=== PATIENT | female | born 1945 | race Caucasian/White ===

== ENCOUNTER 2017-01-29 09:49 | Outpatient (CLI) | payer MEDICARE ==
[2017-01-29 10:56] LABS: ALT (SGPT) 20 U/L (0-55); AST (SGOT) 18 U/L (5-34); Alkaline Phosphatase 85 U/L (40-150); Anion Gap 14 mmol/L (10-20); BUN (Urea Nitrogen) 16 mg/dL (9.8-20.1); Bilirubin, Total 0.7 mg/dL (0.2-1.2); Calc. Creatinine Clearance 0 mL/min (70-130); Calcium 9.4 mg/dL (7.8-10.44); Carbon Dioxide 24 mmol/L (23-31); Chloride 109 mmol/L (98-107); Estimated GFR-MDRD 71; Globulin 2.6 g/dL (2.4-3.5); LDL Cholesterol, Calculated 88 mg/dL; Protein, Total 7.1 g/dL (5.8-8.1)
== END 2017-01-29 09:50 | disposition home or self-care (01) ==
LOC: HPCALD 09:49
PROVIDERS: ATTEND Family Medicine
DX: Z11.59 Encounter for screening for other viral diseases (principal); E78.00 Pure hypercholesterolemia, unspecified
CPT/HCPCS: 36415; 80053; 80061; 86803

== ENCOUNTER 2017-03-14 15:37 | Outpatient (CLI) | payer MEDICARE | END 2017-03-14 15:38 | disposition home or self-care (01) | LOC: HPCALD 15:37 | PROVIDERS: ATTEND Family Medicine | DX: R39.9 Unspecified symptoms and signs involving the genitourinary system (principal) | CPT/HCPCS: 87086 ==

== ENCOUNTER 2019-08-04 19:54 | Emergency (ER) | payer MEDICARE ==
[2019-08-04] MEDS ORDERED: Ibuprofen 800 MG TAB ONE (20:28)
[2019-08-04] MEDS ORDERED: Cephalexin 500 MG CAP ONE (20:28)
[2019-08-04] MEDS ORDERED: Cephalexin 250 MG CAP ONE (20:29)
== END 2019-08-04 20:32 | disposition home or self-care (01) ==
LOC: BURERS 19:54
DX: S81.811A Laceration without foreign body, right lower leg, initial encounter (principal); K21.9 Gastro-esophageal reflux disease without esophagitis; W26.8XXA Contact with other sharp object(s), not elsewhere classified, initial encounter
CPT/HCPCS: 99282

== ENCOUNTER 2021-01-19 12:03 | Outpatient (CLI) | payer MEDICARE ==
--- NOTE | 2021-01-19 15:17 | RAD ---
Left hip 2 views: 01/19/2021 COMPARISON: None HISTORY: Pain, prior trauma FINDINGS: There is mild/moderate superior joint space narrowing with lateral acetabular osteophyte fo rmation. No acute fracture or evidence of dislocation is seen IMPRESSION: Degenerative change of the left hip. No displaced fracture or dislocation.
== END 2021-01-19 12:04 | disposition home or self-care (01) ==
LOC: BURRAD 12:03
PROVIDERS: ATTEND Physician Assistant
DX: M25.552 Pain in left hip (principal); M16.12 Unilateral primary osteoarthritis, left hip; W55.89XA Other contact with other mammals, initial encounter

== ENCOUNTER 2021-07-09 08:05 | Outpatient (CLI) | payer MEDICARE | END 2021-07-09 08:06 | disposition home or self-care (01) | LOC: BURRAD 08:05 | PROVIDERS: ATTEND Family Medicine | DX: M50.121 Cervical disc disorder at C4-C5 level with radiculopathy (principal); M47.22 Other spondylosis with radiculopathy, cervical region | CPT/HCPCS: 72040 ==

== ENCOUNTER 2024-06-18 13:00 | Emergency (ER) | payer MEDICARE, OTHER ==
[2024-06-18] MEDS ORDERED: Amoxicillin/Potassium Clav 875 MG TAB ONE (13:25)
[2024-06-18] MEDS ORDERED: Boostrix 0.5 ML (Tdap) VIAL (>/=7 yrs of age) ONE (13:27)
== END 2024-06-18 13:36 | disposition home or self-care (01) ==
LOC: BURERS 13:00
DX: S61.452A Open bite of left hand, initial encounter (principal); L03.114 Cellulitis of left upper limb; I10 Essential (primary) hypertension; W54.0XXA Bitten by dog, initial encounter; Y93.89 Activity, other specified; Z23 Encounter for immunization
CPT/HCPCS: 90471; 90715